=== PATIENT | female | born 1965 | race American Indian/Alaskan Native ===

== ENCOUNTER → 2017-03-27 | Outpatient (CLI) | payer MEDICAID | LOC: SLR 11:00 | PROVIDERS: ATTEND Specialist | DX: G47.30 Sleep apnea, unspecified (principal); R40.0 Somnolence | CPT/HCPCS: G0399 ==

== ENCOUNTER 2017-05-16 11:00 | Outpatient (CLI) | payer MEDICAID | END 2017-05-16 11:01 | disposition home or self-care (01) | LOC: SLR 11:00 | PROVIDERS: ATTEND Specialist | DX: G47.33 Obstructive sleep apnea (adult) (pediatric) (principal); E66.9 Obesity, unspecified; R40.0 Somnolence | CPT/HCPCS: 95811 ==

== ENCOUNTER 2017-11-26 08:20 | Outpatient (CLI) | payer MEDICARE ==
--- NOTE | 2017-11-27 10:40 | Mammography Report ---
Screening mammogram: Routine views are obtained. No available prior exams. There is asymmetric fibroglandular appearing tissue in the upper-outer breast. No suspicious characteristics. The remainder the breast is generally fatty replaced, symmetric, and unremarkable. CAD used. Impression: Benign-appearing right breast asymmetry. Recommendation: Annual mammogram followup. BI-RADS CATEGORY: 2 = Benign ACR BI-RADS MAMMOGRAPHIC CODES: 0 = Needs additional imaging evaluation; 1 = Negative; 2 = Benign; 3 = Probably benign; 4 = Suspicious; 5 = Malignant; 6 = Known biopsy-proven malignancy COMMENT: 1. Dense breast tissue, i.e., adenosis, fibrocystic changes, etc., may obscure an underlying neoplasm. 2. Approximately 10% of cancers are not detected with mammography. 3. A negative mammography report should not delay biopsy if a clinically suspicious mass is present.
== END 2017-11-26 08:21 | disposition home or self-care (01) ==
LOC: MAMMO 08:20
PROVIDERS: ATTEND Family Medicine
DX: Z12.31 Encounter for screening mammogram for malignant neoplasm of breast (principal)
CPT/HCPCS: 77067

== ENCOUNTER 2018-01-27 09:00 | Inpatient (IN) | payer MEDICARE ==
--- NOTE | 2018-01-27 09:23 | Anesthesia Consultation ---
Anesthesia Consult and Med Hx Date of service: 01/27/18 - Airway Anesthetic Teeth Evaluation: Poor ROM Head & Neck: Adequate Mental/Hyoid Distance: Adequate Mallampati Class: Class II Intubation Access Assessment: Probably Good - Pulmonary Exam CTA: Yes - Cardiac Exam Cardiac Exam: RRR - Pre-Operative Health Status ASA Pre-Surgery Classification: ASA3 Proposed Anesthetic Plan: General - Pulmonary Hx Smoking: Yes (FROM [id number]) SOB: Yes (WITH EXERTION) Hx Sleep Apnea: Yes - Cardiovascular System Hx Hypertension: Yes (SINCE AGE 11) Hx Coronary Artery Disease: No (high cholesterol) - Central Nervous System CVA: Yes (TIA 2016) Hx Back Pain: Yes (LUMBAR SX 2010) Hx Psychiatric Problems: Yes - Gastrointestinal Hx Ulcer: Yes - Endocrine Hx Non-Insulin Dependent Diabetes: Yes - Other Systems Hx Alcohol Use: No Hx Substance Use: Yes (CLEAN SINCE 2003) Hx Cancer: No Hx Obesity: Yes
[2018-01-28] MEDS ORDERED: LACTATED RINGERS 1,000 ML IV SCH ×2 (09:00→13:00)
[2018-01-28] MEDS ORDERED: ZOFRAN IV PRN (12:41)
[2018-01-28] MEDS ORDERED: DILAUDID IV PRN (12:41)
[2018-01-28] MEDS ORDERED: REGLAN IV PRN (12:41)
[2018-01-28] MEDS ORDERED: MORPHINE IV PRN (12:41)
[2018-01-28] MEDS: VERSED IV NR ×2 (12:53→12:58)
[2018-01-28] MEDS ORDERED: ANCEF/STERILE WATER 2 GM/20 ML 2 GM/20 ML SYRINGE IV NR (13:00)
[2018-01-28] MEDS ORDERED: TRANSDERM-SCOP TD SCH (13:00)
[2018-01-28] MEDS ORDERED: FLAGYL 500 MG/100 ML 500 MG/100 ML BAG IV NR ×2 (13:00)
[2018-01-28] MEDS ORDERED: APRESOLINE IV PRN (13:00)
[2018-01-28] MEDS ORDERED: LOVENOX SUB-Q NR ×2 (13:00)
[2018-01-28] MEDS ORDERED: ANCEF/STERILE WATER 2 GM/20 ML IV NR (13:00)
[2018-01-28] MEDS ORDERED: XYLOCAINE 1% 20 mL ONE (13:53)
[2018-01-28] MEDS ORDERED: MARCAINE-EPI 0.5%-1:200,000 INFILTRATI ONE ×2 (13:53→14:16)
[2018-01-28] MEDS ORDERED: XYLOCAINE MPF 2% ONE (14:06)
[2018-01-28] MEDS ORDERED: BLOXIVERZ ONE (14:06)
[2018-01-28] MEDS ORDERED: ZEMURON IV ONE (14:06)
[2018-01-28] MEDS ORDERED: SUBLIMAZE ONE (14:06)
[2018-01-28] MEDS ORDERED: ROBINUL ONE (14:06)
[2018-01-28] MEDS ORDERED: DIPRIVAN 10 MG/ML IV ONE ×2 (14:07→14:31)
[2018-01-28] MEDS ORDERED: XYLOCAINE 1% 20 mL INFILTRATI ONE (14:16)
[2018-01-28] MEDS ORDERED: NACL 0.9% IR ONE (14:16)
--- NOTE | 2018-01-28 14:37 | Anesthesia Day of Surgery ---
Anesthesia Day of Surgery - Day of Surgery Patient Examined: Yes Patient H&P Reviewed: Yes Patient is NPO: Yes
[2018-01-28] MEDS ORDERED: DECADRON ONE (14:41)
--- NOTE | 2018-01-28 14:47 | Progress Note ---
Subjective Date of service: 01/28/18 Interval history: This letter serves to inform the patient, Ms. Ebony Johnson 1965 and any future anesthesiology providers that she was a difficult intubation prior to her bariatric surgery procedure at [facility] on 01/28/2018. Please bring a copy of this note with you for all future anesthetic procedures so that your anesthesiology team can be appropriately prepared. On direct laryngoscopy with MAC 3 by wood boatbuilder apprentice, best achieved view was grade 4. On video laryngoscopy with C-MAC MAC 3 blade, best achieved view by wood boatbuilder apprentice was grade 2b (arytenoids only, no vocal cords seen) however unable to direct oETT to glottic opening. On video laryngoscopy with C-MAC MAC 3 blade , best achieved view by anesthesiologist was grade 2b (arytenoids only, no vocal cords seen). oETT stylet angle was increased and significant cricoid pressure was applied to accommodate for anterior position of glottis resulting in successful intubation. She remained an easy mask with oral airway throughout. Nina Dias MD Staff Anesthesiologist 01/28/2018 Objective - Constitutional Vitals: Vital Signs - 12hr 01/28/18 01/28/18 12:05 12:30 Temperature 98.2 F 98.2 F Pulse Rate 66 66 Respiratory 22 22 Rate Blood Pressure 130/83 130/83 O2 Sat by Pulse 96 96 Oximetry - Labs Labs: Abnormal lab results 01/28/18 Range/Units 12:42 POC Glucose 166 H (70-105)
[2018-01-28] MEDS: DILAUDID IV PRN ×2 (16:05→16:31)
--- NOTE | 2018-01-28 17:15 | Post Anesthesia Evaluation ---
- Post Anesthesia Evaluation Patient Participated: Yes Airway Patent: Yes Stable Respiratory Function: Yes Nausea/Vomiting: No Temp > 96.8F: Yes Pain Manageable: Yes Adequeate Hydration: Yes Anesthesia Complications: No
[2018-01-28] MEDS: MYLICON PO PRN (17:28)
[2018-01-28] MEDS: NORCO PO PRN ×2 (19:51→23:22)
--- NOTE | 2018-01-28 22:28 | Operative Report ---
SURGEON: Kasia Spencer M.D., Mayco Johnson M.D. DIMENSIONAL INSPECTOR: Hunter Walsh CSA. PREOPERATIVE DIAGNOSIS: Morbid obesity. POSTOPERATIVE DIAGNOSIS: Morbid obesity. OPERATION: 1. Laparoscopic sleeve gastrectomy. 2. Laparoscopic hiatal hernia repair. ANESTHESIA: General endotracheal anesthesia. COMPLICATIONS: None. BLEEDING: Minimal. SPECIMENS: Gastric remnant. INDICATIONS: The patient is a 52-year-old female with a history of morbid obesity, refractory to diet and exercise. She wishes for weight loss operation and has undergone preoperative bariatric workup. The risks, complications, and alternatives were explained to the patient and informed consent was obtained. DESCRIPTION OF PROCEDURE: The patient was brought to the operating suite where she was placed in the supine position and underwent general endotracheal intubation. She received preoperative antibiotics and DVT prophylaxis. A time-out was called to ensure proper patient, indication, operation and then she was prepped and draped in usual sterile manner. A stab incision was made at the base of the umbilicus with insertion of a Veress needle insufflation to 18 mmHg. The incision was widened and a 15 mm trocar was placed. There were no intra-abdominal injuries. Additional 5 mm trocars were then placed in the right lateral space of subxiphoid and left lateral space. The patient was placed in steep reverse Trendelenburg and a liver retractor was placed. She had extremely large floppy fatty liver, which did obscure and make the case fairly difficult for visualization. A hiatal dissection was next completed demonstrating a small hiatal hernia and dissecting out the angle of His. Then I went and divided the gastrocolic ligament from the greater curvature of the stomach with a LigaSure device, mobilizing the stomach entirely. This was continued antegrade onto the duodenum for about 6 cm. Anesthesia then placed a 40-Micronesian bougie for calibration and a sleeve gastrectomy was then performed with several staple loads. The pressure was decreased and the staple line was cauterized for hemostasis after each fire. After this, an anterior cruroplasty was then performed with 0 Surgidac suture. An anterior fundoplication was then next performed from the anterior fundus of the stomach to the lucía. The patient was then leveled out and the gastric remnant was removed from the umbilical port site. The fascia was closed with a [id number] #1 PDS in a Danyel-Gregor fashion and then all the air was desufflated and the ports were removed. The incisions were closed with 4-0 Monocryl. Sterile bandages were placed over top. The patient tolerated the procedure well and was transferred to the PACU in stable condition. Counts were correct. JOB# [id number] MCL/NTS MTDD
[2018-01-28] MEDS: LOPRESSOR PO SCH (23:14)
[2018-01-29] MEDS: NORCO PO PRN ×3 (04:32→13:02)
[2018-01-29 04:43] LABS: Basophils % (Auto) 0.1 % (0.0-1.8); Hematocrit 40.4 % (30.3-42.9); Hemoglobin 13.2 gm/dl (10.1-14.3); Lymphocytes # (Auto) 1.9 K/mm3 (1.2-5.4); Lymphocytes % (Auto) 12.7 % (13.4-35.0); Mean Corpuscular HGB Conc 33 % (30-34); Mean Corpuscular Hemoglobin 28 pg (28-32); Mean Corpuscular Volume 86 fl (79-97); Monocytes # (Auto) 0.6 K/mm3 (0.0-0.8); Monocytes % (Auto) 4.4 % (0.0-7.3); Platelet Count 250 K/mm3 (140-440); Red Blood Count 4.68 M/mm3 (3.65-5.03); Red Cell Distribution Width 14.3 % (13.2-15.2)
[2018-01-29 05:18] LABS: BUN/Creatinine Ratio 21; Blood Urea Nitrogen 19 mg/dL (7-17); Calcium 9.5 mg/dL (8.4-10.2); Hemolysis Index 19
--- NOTE | 2018-01-29 07:01 | Progress Note ---
Assessment and Plan 52F MO sp laparoscopic sleev gastrectomy, HHR #1 sp LS - pain control - nausea control - ambulate - bariatric CLD - discussed postop care and diet - all Rx given at preop visit Subjective Date of service: 01/29/18 Interval history: No issues overnight. Ambulated. Tolerated clears. Objective - Exam Narrative Exam: Gen: AAO, NAD, HEENT: Anicteric HEART: RRR Lungs: CTAB Abd: Soft, MO, NT, ND, bandages cdi EXT: NO le edema - Constitutional Vitals: Vital Signs - 12hr 01/28/18 01/28/18 01/29/18 19:55 23:14 00:00 Temperature 98.0 F 95.1 F L Pulse Rate 87 100 H 91 H Respiratory 18 18 Rate Blood Pressure 159/80 159/80 162/99 Blood Pressure [Left] O2 Sat by Pulse 91 94 Oximetry 01/29/18 05:31 Temperature 97.9 F Pulse Rate 78 Respiratory 17 Rate Blood Pressure Blood Pressure 125/74 [Left] O2 Sat by Pulse 96 Oximetry - Labs CBC & Chem 7: 01/29/18 04:00 01/29/18 04:00 Labs: Abnormal lab results 01/28/18 01/29/18 01/29/18 Range/Units 12:42 04:00 04:00 WBC 14.8 H (4.5-11.0) K/mm3 Lymph % (Auto) 12.7 L (13.4-35.0) % Seg Neutrophils % 82.8 H (40.0-70.0) % Seg Neutrophils # 12.3 H (1.8-7.7) K/mm3 Sodium 136 L (137-145) mmol/L Chloride 96.6 L (98-107) mmol/L BUN 19 H (7-17) mg/dL Glucose 261 H (65-100) mg/dL POC Glucose 166 H (70-105)
--- NOTE | 2018-01-29 07:03 | Discharge Summary ---
Providers - Providers Date of Admission: 01/28/18 11:28 Date of discharge: 01/29/18 Attending physician: ELZBIETA JOHNSON Primary care physician: DONNELL CASSIDY Hospitalization Reason for admission: postop Condition: Good Procedures: 01/28/18: Laparoscopic sleeve gastrectomy, HHR Hospital course: 52F admitted after her operation for routine monitoring. Had an unremarkable night. Ambualted, tolerated a CLD, pain controlled. Sent home in stable condition. Disposition: DC-01 TO HOME OR SELFCARE Core Measure Documentation - Palliative Care Palliative Care/ Comfort Measures: Not Applicable - Core Measures Any of the following diagnoses?: none - VTE Discharge Requirements Deep Vein Thrombosis/Pulmonary Embolism Present on Admission: No - Acute [place] Discharge Requirements Aspirin at discharge: No Reason for no aspirin on DC: Surgical contraindication - Heart Failure Discharge Requirements CHRISTOPHER/ARB for LVSD if EF <40%: Not Applicable - Stroke Discharge Requirements Statin for LDL = or >70 mg/dl on DC: Not Applicable Exam - Physical Exam Narrative exam: Gen: AAO, NAD, HEENT: Anicteric HEART: RRR Lungs: CTAB Abd: Soft, MO, NT, ND, bandages cdi EXT: NO le edema - Constitutional Vitals: Temp Pulse Resp BP Pulse Ox 97.9 F 78 17 125/74 96 01/29/18 05:31 01/29/18 05:31 01/29/18 05:31 01/29/18 05:31 01/29/18 05:31 Plan Diet: clear liquids Wound: keep clean and dry Additional Instructions: fu Dr Johnson as already scheduled Follow up with: DONNELL CASSIDY MD [Primary Care Provider] - 7 Days
[2018-01-29] MEDS ORDERED: AMARYL PO SCH (08:00)
[2018-01-29] MEDS: LOPRESSOR PO SCH (09:33)
[2018-01-29] MEDS ORDERED: HCTZ PO SCH (10:00)
[2018-01-29] MEDS ORDERED: PROTONIX PO SCH (10:00)
[2018-01-29] MEDS ORDERED: NORVASC PO SCH (10:00)
[2018-01-29] MEDS ORDERED: LOVENOX SUB-Q SCH (10:00)
[2018-01-29] MEDS ORDERED: LIORESAL PO SCH (10:00)
[2018-01-29] MEDS ORDERED: COZAAR PO SCH (10:00)
[2018-01-29] MEDS: MYLICON PO PRN (11:32)
[2018-01-29 11:50] VITALS: BP 121/62
[2018-01-29] MEDS ORDERED: GLUCOPHAGE PO SCH (12:00)
== END 2018-01-29 13:40 | disposition home or self-care (01) | DRG 327 ==
LOC: 3A 01-28 11:28 → 3B-SURG 01-28 16:00
PROVIDERS: ADMIT Specialist; ATTEND Specialist
PROC: 0DB64Z3 Excision of Stomach, Percutaneous Endoscopic Approach, Vertical (ICD-10-PCS; principal; 2018-01-28)
PROC: 0DV44ZZ Restriction of Esophagogastric Junction, Percutaneous Endoscopic Approach (ICD-10-PCS; 2018-01-28)
PROC: 0BQT4ZZ Repair Diaphragm, Percutaneous Endoscopic Approach (ICD-10-PCS; 2018-01-28)
DX: K44.9 Diaphragmatic hernia without obstruction or gangrene (principal); Z68.41 Body mass index [BMI] 40.0-44.9, adult; E66.01 Morbid (severe) obesity due to excess calories; F17.200 Nicotine dependence, unspecified, uncomplicated; G47.30 Sleep apnea, unspecified; I10 Essential (primary) hypertension; E11.9 Type 2 diabetes mellitus without complications; K21.9 Gastro-esophageal reflux disease without esophagitis; F32.9 Major depressive disorder, single episode, unspecified; K30 Functional dyspepsia; Z86.73 Personal history of transient ischemic attack (TIA), and cerebral infarction without residual deficits
CPT/HCPCS: 36415; 80048; 82962; 85025; 88307; J0690; J1100; J1170; J1650; J2250; J2704; J2710; J3010; J7120